=== PATIENT | male | born 2000 | race Caucasian/White ===

== ENCOUNTER 2021-06-06 10:49 | Emergency (ER) | payer OTHER, SELFPAY ==
[2021-06-06 11:02] VITALS: BP 136/79; PULSE 84; RESP 16; TEMP 36.9; O2SAT 99
--- NOTE | 2021-06-06 11:42 | ED_ITS ---
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 Patient states she has a 1 week worsening of at least 1/2-year history of intermittent left pectoral chest pain. Symptoms are sharp , absent now; no meds for HTN, DM, HLD, nor early FMH. No fever, cough, reflux, acid taste, radiation, calf edema/pain, palpitations, presyncope; no loss of taste/smell, CP, S OB, wheezing/sneezing. Vital signs are normal, EKG borderline: IC RBBB at rate of 73,pr 1 6, QRS 0.10, QTc 0.382 Related Data Allergies Allergy/AdvReac Type Severity Reaction Status Date / Time No Known Allergies Allergy Verified 06/06/21 11:02 Review of Systems Review of Systems: General/Constitutional: No weight loss,fever Eyes: N0: Redness,discharge Ears/Nose/Throat: No: Epistaxis,ear discharge Respiratory: Denies: Hemoptysis Gastrointestinal: No Vomiting, Bleeding-rectal Skin: No Lumps, eruption Neurologic: No Focal Weakness,Sz Hematologic: Denies: Petechiae/Purpura Psychiatric: No: Suicida ideationl All Other Systems: Reviewed and Negative [facility] Social History Social History Smoking status: Never smoker Alcohol intake: never Comments At time of signature, agree with nursing past medical, surgical, social and family history. There is no relevant family history pertinent to the presenting complaint Exam Narrative: General Appearance: Well appearing, No distress EYE: PERRLA, Conjunctiva clear Ears: External ear normal Nose: Normal nose Mouth/Throat: Normal appearing, Normal lips Neck: Supple Respiratory: Airway patent, No respiratory distress Cardiovascular: RRR, mild left pectoral point tenderness, no sternal discomfort Abdomen: Soft, Non-tender, Musculoskeletal: Full ROM Skin: Warm, Dry Neurological: A&O x3, CN II-X intact Psychiatric: Normal mood, Normal affect Course Vital Signs Vital signs: Vital Signs Temperature 98.5 F 06/06/21 11:02 Pulse Rate 84 06/06/21 11:02 Respiratory Rate 16 06/06/21 11:02 Blood Pressure 136/79 06/06/21 11:02 Pulse Oximetry 99 06/06/21 11:02 Temperature 98.5 F 06/06/21 11:02 Pulse Rate 84 06/06/21 11:02 Respiratory Rate 16 06/06/21 11:02 Blood Pressure 136/79 06/06/21 11:02 Pulse Oximetry 99 06/06/21 11:02 Discharge Plan Discharge Clinical Impression: Pain, chest wall Patient Disposition: Home, Self-Care Condition: Stable Instructions: Chest Wall Pain (ED) Prescriptions: New prednisone 20 mg tablet 60 mg PO DAILY Qty: 9 RF: 0 tramadol 50 mg tablet 50 - 75 mg PO BID PRN (Reason: pain) Qty: 30 RF: 0 Follow-up/Referrals: UNKNOWN,DOCTOR [Primary Care Provider] -
--- NOTE | 2021-06-06 12:51 | ECG_ITS ---
Measurements Intervals [place] Rate: 73 P: 69 ID: [id number] QRS: 65 QRSD: 101 T: 52 QT: 357 QTc: 394 Interpretive Statements SINUS RHYTHM WITH SINUS ARRHYTHMIA INCOMPLETE RIGHT BUNDLE BRANCH BLOCK BORDERLINE ECG Electronically Signed On 06-06-2021 13:40:20 [employer]ITAL [employer]ODUCTION [employer]IST by Daniel Dugan D.O.
== END 2021-06-06 11:50 | disposition home or self-care (01) ==
PROVIDERS: Emergency Provider Emergency Medicine
DX: R07.89 Other chest pain (principal); I45.10 Unspecified right bundle-branch block
CPT/HCPCS: 93005; 99213; G0463